=== PATIENT | male | born 1980 | race Caucasian/White ===

== ENCOUNTER → 2020-05-26 | Outpatient (CLI) | payer OTHER ==
--- NOTE | 2020-05-26 16:43 | RAD ---
EXAM: AP and lateral views of both elbows DATE: 05/26/2020 12:00 AM INDICATION: Reason: BILATERAL ELBOW PAIN / Spl. Instructions: / History: COMPARISON: No Prior FINDINGS: Right elbow: No evidence of acute fracture or dislocation. Olecranon enthesopathy. No joint effusion. Left elbow: No evidence of acute fracture or dislocation. No joint effusion. Coronoid process enthesopathy. IMPRESSION: No evidence of acute fracture or dislocation. No joint effusion Electronically signed by: Lit Jones MD (05/26/2020 4:40 PM) [facility]
== END | disposition home or self-care (01) ==
LOC: DXRAD 14:21
PROVIDERS: ATTEND Orthopaedic Surgery
DX: M77.8 Other enthesopathies, not elsewhere classified (principal); M25.522 Pain in left elbow; M25.521 Pain in right elbow
CPT/HCPCS: 73070